=== PATIENT | female | born 1995 | race Two or more races ===

== ENCOUNTER 2018-03-10 07:54 | Outpatient (CLI) | payer OTHER | END 2018-03-10 08:03 | disposition home or self-care (01) | LOC: SONOGRAMA 07:54 | DX: R59.9 Enlarged lymph nodes, unspecified (principal) ==

== ENCOUNTER 2021-11-19 16:15 | Emergency (ER) | payer OTHER ==
[~2021-11-19] VITALS: Ht 165.1 cm; Wt 63.5 kg
== END 2021-11-19 20:08 | disposition home or self-care (01) ==
LOC: ER 16:15
DX: R10.84 Generalized abdominal pain (principal)